=== PATIENT | female | born 1955 | race African-American/Black ===

== ENCOUNTER 2023-11-16 22:17 | Emergency (ER) | payer MEDICARE ==
[~2023-11-16] VITALS: Ht 175.3 cm; Wt 95.0 kg
[2023-11-16 22:46] LABS: COVID AG,FIA SOURCE NASAL SWAB
[2023-11-16 23:22] LABS: INFLUENZA TYPE A NEGATIVE FOR TYPE A (NEGATIVE); INFLUENZA TYPE B NEGATIVE FOR TYPE B (NEGATIVE); SARS-COV2 (COVID) ANTIGEN,FIA Negative (Negative)
[2023-11-16 23:28] VITALS: BP 180/75; PULSE 66; RESP 16; TEMP 98.2
[2023-11-17] MEDS ORDERED: AZIT250T9 PO (00:05)
[2023-11-17] MEDS ORDERED: BENZ-227 PO (00:05)
== END 2023-11-17 00:19 | disposition home or self-care (01) ==
LOC: EMS 22:18
DX: J98.4 Other disorders of lung (principal); Z20.822 Contact with and (suspected) exposure to COVID-19
CPT/HCPCS: 71046; 87430; 87804; 99284